=== PATIENT | female | born 1985 | race Caucasian/White ===

== ENCOUNTER 2016-12-02 12:06 | Outpatient (RCR) | payer BC ==
[~2016-12-02 12:06] MED LIST: ALBU17AE3 IH; BUPR150T14; CEFU500T34 PO; DEXA4TAB; DOCU-143 PO; FAMO20TA5 PO; FENT1PAT57 TD; HYDR-3812 PO; HYDR-3816 PO; HYDR2TAB6; IBUP-1780 PO; LEVO500T69 PO; ONDA8TAB12; OXYC5TAB71; PANT40TA2 PO; PRCD5U PO; PRD10T PO; PRD20T PO; PREN1TAB39; PROC10TA; PROM50SU10 RC; SIME125C PO
--- OUTSIDE RECORDS SUMMARY | 2016-12-02 12:11 | XMS REPORT | Continuity of Care Document ---
Author Author [facility] Organization [facility] Address Unknown Phone Unavailable Care Team Providers Care Gifted Program Teacher Name Role Phone Damari Mendoza PCP [phone] Source Comments Some departments are not documenting in the electronic medical record. If you do not see the information that you expected, contact Release of Information in the Health Information Management department at [phone] for further assistance in locating additional records.[facility] Active Allergies and Adverse Reactions Allergen Noted Date Severity Reactions Comments Clindamycin 01/18/2016 Medium HIVES Latex, Natural Rubber 01/28/2016 Low ITCHING Has not tolerated condoms in past Morphine 01/18/2016 Medium MENTAL STATUS CHANGES Anger, confusion Sulfa (Sulfonamide 01/18/2016 Medium HIVES Antibiotics) Zithromax 01/18/2016 Medium HIVES Current Medications Prescription Sig. Disp. Refills Start End Date Status Date buPROPion SR(+) Take 1 Tab by mouth 30 Tab 0 10/04/20 Active (WELLBUTRIN-SR) 150 mg daily. May take 1 tabs 16 tablet daily for 7 days. Then increase to 2 tabs daily. Indications: SMOKING CESSATION Active Problems Problem Noted Date Neutropenic fever (HCC) 04/10/2016 Diaphragm injury 02/09/2016 Lung consolidation (HCC) 02/09/2016 Overview: Left lung consolidation and mucous plugging 02/07/2016 - x-ray and CT scan chest Hypomagnesemia 02/09/2016 Overview: Replaced 02/09/2016 Ovarian cancer (HCC) 01/17/2016 Overview: Formatting of this note may be different from the original. 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 Sherrie Brar PCP: Dr. Damari Mendoza HPI: Ms Analisa Martinez is a 30 yo who presented to [facility] on 12/21/15 for severe abdominal pain of 4-5 days in duration. At time of presentation she noted recurrent loose stools and low grade fevers. A sonogram was obtained on 12/21/15 that demonstrated moderate amount of ascites in the abdomen. A CT scan was also done that demonstrated both ovaries enlarged with the left being severely enlarged measuring 7.5 cm in diameter and the right 5 cm. The left ovary also contained two large cysts of 3 and 3.5 cm consistent with ovarian endometriosis with endometriomas on both ovaries. The right ovary was moderately enlarged and contains a small cyst suggesting endometriosis in the right ovary. Mesenteric edema in the low abdomen was noted. There is a moderate amount of ascites in the abdomen and pelvis with most of the fluid being in the pelvis but a small amount of ascites around the liver and spleen. A paracentesis on 12/21/15 showed benign mesothelium with fragment of benign tubal epithelium. 2. On 01/05/16 the patient underwent a laparoscopy with left ovarian biopsy and left salpingoophorectomy, peritoneal washings. 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 Peritoneal fluid (pelvic washings) showed cellular evidence of metastatic adenocarcinoma most consistent with a gynecologic primary. CA 125 on 01/05/16 was 353.5. On 01/07/16 she presented to the [facility] ED for postoperative pain, nausea and vomiting. Imaging consistent with SBO secondary to herniation of bowel through the LLQ incision site. A diagnostic laparoscopy with release of small bowel obstruction and repair of incarcerated incisional hernia was performed at that time. 3. She was seen in my office for the first time on 01/13/2016 4. S/P Ovarian tumor debulking with abdominal hysterectomy, right salpingo-oophorectomy, pelvic peritoneal stripping, diaphragmatic stripping with repair of diaphragmatic opening. Extensive bilateral pelvic and periaortic lymph node dissection with omentectomy and placement of IP port performed 02/05/[address] Rosales. 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 0/33 LN involved. Hospital stay 02/05/16-02/12/16 with complication of pulmonary atelectasis. 5. Started Chemotherapy on 03/07/16 cycle # 1 of IV/IP Taxol/CDDP. 6. Seen on 04/18/2016, prior to Cycle #3 of IV/IP Taxol/Cisplatin. Hospitalized 04/10 for neutropenic fever and sent home with oral antibiotic therapy. Due to grade 3 abdominal pain with C2, day 8 was canceled. Dose reduction also made prior to cycle 2. Decision was made to change to IV only. 7. She completed chemotherapy on 06/20/2016, as cycle #6/6. Lab Results Component Value Date CA125 9 07/08/2016 8. Her CA125 was normal as early as 03/28/2016; Her post-treatment CT Scan done on 07/08/2016 showed: IMPRESSION: Previous hysterectomy, bilateral salpingo-oophorectomy, and retroperitoneal lymph node dissection with decrease in size of postoperative fluid collections within the left retroperitoneum and along the right pelvic sidewall. No evidence of abdominopelvic metastatic disease. Stable left adrenal nodule with relative washout characteristics consistent with an adrenal adenoma. 9. She presents to the office on 09/09/2016 for 3 month cancer surveillance visit. IP port catheter removed 08/12/[address] OLMEDO. 10. 10/04/16: Presents to concerns of bloating. No evidence of reoccurrence with exam, lab, or imaging; reviewed with patient. Last Assessment & Plan: Doing well. Today is Cycle #6. PLAN: Declines lymphedema consultation. Proceed with cycle #6. RV in 4 weeks; CT in 3 - 3 1/[address] negative, plan on RVs q 3 months with CA125. First 3 month RV with Lindsey. Most Recent Encounters Date Type Specialty Providers Description 10/04/2016 Office Visit Oncology ChahalVani allen M, INSPECTION MANAGER Ovarian cancer, unspecified laterality (HCC) (Primary Dx); Discontinued smoking; Lymphedema 10/04/2016 [facility] Radiology Caprice Webb MD Encounter 10/04/2016 Screening Form 10/04/2016 Ancillary Oncology Chahal, Vani M, INSPECTION MANAGER Ovarian ca, unspecified Orders laterality (HCC) (Primary Dx) 09/22/2016 Orders Only Oncology Chahal Vani M, INSPECTION MANAGER Ovarian cancer, BRCA2 positive, unspecified laterality (HCC) (Primary Dx) 09/22/2016 Orders Only Oncology Chahal, Vani M, INSPECTION MANAGER Ovarian ca, unspecified laterality (HCC) (Primary Dx) Social History Tobacco Use Types Packs/Day Years Used Date Current Every Day Smoker Cigarettes 0.5 14 Smokeless Tobacco: Never Used Comments: down to 2 cigs/day Alcohol Use Drinks/Week oz/Week Comments No Last Filed Vital Signs Vital Sign Reading Time Taken Blood Pressure 106/76 10/04/2016 2:06 PM PLANT MACHINIST Pulse 79 10/04/2016 2:06 PM PLANT MACHINIST Temperature 36.6 C (97.8 F) 10/04/2016 2:06 PM PLANT MACHINIST Respiratory Rate 17 06/20/2016 8:58 AM CDT Height 1.778 m (5' 10") 10/04/2016 2:08 PM PLANT MACHINIST Weight 74.027 kg (163 lb 3.2 oz) 10/04/2016 2:06 PM PLANT MACHINIST Body Mass Index 23.42 10/04/2016 2:06 PM PLANT MACHINIST Oxygen Saturation 98% 10/04/2016 2:06 PM PLANT MACHINIST Plan of Care Date Type Specialty Providers Description 01/12/2017 Appointment Oncology 01/12/2017 Appointment Oncology Caprice Webb MD [address] [facility] [address] [place] [address] [phone] (Fax) Health Maintenance Due Date Last Done Comments Physical (Comprehensive) 1990 Exam Pertussis Vaccine 1994 Tetanus Vaccine 2000 Cervical Cancer Screening 2004 Influenza Vaccine 06/23/2016 Results from Last [address] CHEST W CONTRAST (10/04/2016 9:10 AM) Impressions CHEST: No evidence of thoracic metastatic disease. ABDOMEN AND PELVIS: 1. Prior hysterectomy, bilateral salpingo-oophorectomy, omentectomy and retroperitoneal lymph node dissection without evidence of abdominopelvic metastatic disease or ascites. 2. Continued decrease in size of small postoperative fluid collections in the pelvis as detailed above. By my electronic signature, I attest that I have personally reviewed the images for this examination and formulated the interpretations and opinions expressed in this report Finalized by Sagrario Parra M.D. on 10/04/2016 10:16 AM. Dictated by Randall Maldonado M.D. on 10/04/2016 9:[address] CHEST, ABDOMEN AND PELVIS Clinical Indication: 31-year-old female with ovarian cancer, evaluation of disease progression Technique: Multiple contiguous axial images were obtained through the chest, abdomen and pelvis following the administration of IV contrast material. Portal venous phase of postcontrast imaging was obtained. Post processing coronal and sagittal reconstruction images were made from the axial images. Comparison: CT examination 07/08/2016, 04/10/2016, and 02/08/2016. CHEST FINDINGS: Lower Neck: Unremarkable Axilla, Mediastinum and Tammy: Anterior mediastinal soft tissue, compatible with remnant thymus. No new or enlarging thoracic lymphadenopathy. Heart and Great Vessels: Heart size is normal without pericardial effusion. Thoracic aorta is normal in caliber. Left chest port with tip projecting in the right atrium. Airway, Lungs and Pleura: Unchanged subpleural right pulmonary nodules. No new suspicious for nodules, pleural effusion, or pneumothorax. Chest Wall and Osseous Structures: No destructive osseous lesion. ABDOMEN AND PELVIS FINDINGS: Liver and Biliary system: Unremarkable. Spleen: Unremarkable. Adrenal Glands and Kidneys: No significant change in 1.3 cm left adrenal adenoma. Kidneys and adrenal glands otherwise unremarkable. Pancreas and Retroperitoneum: Pancreas is unremarkable. Prior retroperitoneal lymph node dissection without new or enlarging adenopathy. Minimal residual postoperative fluid collection adjacent to the left iliopsoas musculature measuring 1.9 x 1.0 cm (series 2, image 119), compared with 3.3 cm on previous examination. Aorta and Major Vessels: Unremarkable. Bowel, Mesentery and Peritoneal space: Prior omentectomy.Small large bowel in caliber without evidence of obstruction.Interval removal of intraperitoneal port catheter. No significant abdominal ascites.No mesenteric adenopathy or soft tissue nodularity. Pelvis: Prior hysterectomy and bilateral salpingo-oophorectomy.No abnormal soft tissue mass in the postoperative margin.Resolution of previously described right pelvic sidewall postoperative fluid collection, with further decrease in size of small postoperative fluid collections along the left pelvic sidewall and left retroperitoneum.No new or enlarging pelvic lymphadenopathy. Abdominal wall and Osseous Structures: Mild lumbar spondylosis without destructive osseous lesion. Procedure Note Interface, Radiant Results - Tue Oct 04, 2016 10:[address] CHEST, ABDOMEN AND PELVIS Clinical Indication: 31-year-old female with ovarian cancer, evaluation of disease progression Technique: Multiple contiguous axial images were obtained through the chest, abdomen and pelvis following the administration of IV contrast material. Portal venous phase of postcontrast imaging was obtained. Post processing coronal and sagittal reconstruction images were made from the axial images. Comparison: CT examination 07/08/2016, 04/10/2016, and 02/08/2016. CHEST FINDINGS: Lower Neck: Unremarkable Axilla, Mediastinum and Tammy: Anterior mediastinal soft tissue, compatible with remnant thymus. No new or enlarging thoracic lymphadenopathy. Heart and Great Vessels: Heart size is normal without pericardial effusion. Thoracic aorta is normal in caliber. Left chest port with tip projecting in the right atrium. Airway, Lungs and Pleura: Unchanged subpleural right pulmonary nodules. No new suspicious for nodules, pleural effusion, or pneumothorax. Chest Wall and Osseous Structures: No destructive osseous lesion. ABDOMEN AND PELVIS FINDINGS: Liver and Biliary system: Unremarkable. Spleen: Unremarkable. Adrenal Glands and Kidneys: No significant change in 1.3 cm left adrenal adenoma. Kidneys and adrenal glands otherwise unremarkable. Pancreas and Retroperitoneum: Pancreas is unremarkable. Prior retroperitoneal lymph node dissection without new or enlarging adenopathy. Minimal residual postoperative fluid collection adjacent to the left iliopsoas musculature measuring 1.9 x 1.0 cm (series 2, image 119), compared with 3.3 cm on previous examination. Aorta and Major Vessels: Unremarkable. Bowel, Mesentery and Peritoneal space: Prior omentectomy. Small large bowel in caliber without evidence of obstruction. Interval removal of intraperitoneal port catheter. No significant abdominal ascites. No mesenteric adenopathy or soft tissue nodularity. Pelvis: Prior hysterectomy and bilateral salpingo-oophorectomy. No abnormal soft tissue mass in the postoperative margin. Resolution of previously described right pelvic sidewall postoperative fluid collection, with further decrease in size of small postoperative fluid collections along the left pelvic sidewall and left retroperitoneum. No new or enlarging pelvic lymphadenopathy. Abdominal wall and Osseous Structures: Mild lumbar spondylosis without destructive osseous lesion. IMPRESSION CHEST: No evidence of thoracic metastatic disease. ABDOMEN AND PELVIS: 1. Prior hysterectomy, bilateral salpingo-oophorectomy, omentectomy and retroperitoneal lymph node dissection without evidence of abdominopelvic metastatic disease or ascites. 2. Continued decrease in size of small postoperative fluid collections in the pelvis as detailed above. By my electronic signature, I attest that I have personally reviewed the images for this examination and formulated the interpretations and opinions expressed in this report Finalized by Sagrario Parra M.D. on 10/04/2016 10:16 AM. Dictated by Randall Maldonado M.D. on 10/04/2016 9:[address] ABD/PELV W CONTRAST (10/04/2016 9:10 AM) Impressions CHEST: No evidence of thoracic metastatic disease. ABDOMEN AND PELVIS: 1. Prior hysterectomy, bilateral salpingo-oophorectomy, omentectomy and retroperitoneal lymph node dissection without evidence of abdominopelvic metastatic disease or ascites. 2. Continued decrease in size of small postoperative fluid collections in the pelvis as detailed above. By my electronic signature, I attest that I have personally reviewed the images for this examination and formulated the interpretations and opinions expressed in this report Finalized by Sagrario Parra M.D. on 10/04/2016 10:16 AM. Dictated by Randall Maldonado M.D. on 10/04/2016 9:[address] CHEST, ABDOMEN AND PELVIS Clinical Indication: 31-year-old female with ovarian cancer, evaluation of disease progression Technique: Multiple contiguous axial images were obtained through the chest, abdomen and pelvis following the administration of IV contrast material. Portal venous phase of postcontrast imaging was obtained. Post processing coronal and sagittal reconstruction images were made from the axial images. Comparison: CT examination 07/08/2016, 04/10/2016, and 02/08/2016. CHEST FINDINGS: Lower Neck: Unremarkable Axilla, Mediastinum and Tammy: Anterior mediastinal soft tissue, compatible with remnant thymus. No new or enlarging thoracic lymphadenopathy. Heart and Great Vessels: Heart size is normal without pericardial effusion. Thoracic aorta is normal in caliber. Left chest port with tip projecting in the right atrium. Airway, Lungs and Pleura: Unchanged subpleural right pulmonary nodules. No new suspicious for nodules, pleural effusion, or pneumothorax. Chest Wall and Osseous Structures: No destructive osseous lesion. ABDOMEN AND PELVIS FINDINGS: Liver and Biliary system: Unremarkable. Spleen: Unremarkable. Adrenal Glands and Kidneys: No significant change in 1.3 cm left adrenal adenoma. Kidneys and adrenal glands otherwise unremarkable. Pancreas and Retroperitoneum: Pancreas is unremarkable. Prior retroperitoneal lymph node dissection without new or enlarging adenopathy. Minimal residual postoperative fluid collection adjacent to the left iliopsoas musculature measuring 1.9 x 1.0 cm (series 2, image 119), compared with 3.3 cm on previous examination. Aorta and Major Vessels: Unremarkable. Bowel, Mesentery and Peritoneal space: Prior omentectomy.Small large bowel in caliber without evidence of obstruction.Interval removal of intraperitoneal port catheter. No significant abdominal ascites.No mesenteric adenopathy or soft tissue nodularity. Pelvis: Prior hysterectomy and bilateral salpingo-oophorectomy.No abnormal soft tissue mass in the postoperative margin.Resolution of previously described right pelvic sidewall postoperative fluid collection, with further decrease in size of small postoperative fluid collections along the left pelvic sidewall and left retroperitoneum.No new or enlarging pelvic lymphadenopathy. Abdominal wall and Osseous Structures: Mild lumbar spondylosis without destructive osseous lesion. Procedure Note Interface, Radiant Results - Tue Oct 04, 2016 10:[address] CHEST, ABDOMEN AND PELVIS Clinical Indication: 31-year-old female with ovarian cancer, evaluation of disease progression Technique: Multiple contiguous axial images were obtained through the chest, abdomen and pelvis following the administration of IV contrast material. Portal venous phase of postcontrast imaging was obtained. Post processing coronal and sagittal reconstruction images were made from the axial images. Comparison: CT examination 07/08/2016, 04/10/2016, and 02/08/2016. CHEST FINDINGS: Lower Neck: Unremarkable Axilla, Mediastinum and Tammy: Anterior mediastinal soft tissue, compatible with remnant thymus. No new or enlarging thoracic lymphadenopathy. Heart and Great Vessels: Heart size is normal without pericardial effusion. Thoracic aorta is normal in caliber. Left chest port with tip projecting in the right atrium. Airway, Lungs and Pleura: Unchanged subpleural right pulmonary nodules. No new suspicious for nodules, pleural effusion, or pneumothorax. Chest Wall and Osseous Structures: No destructive osseous lesion. ABDOMEN AND PELVIS FINDINGS: Liver and Biliary system: Unremarkable. Spleen: Unremarkable. Adrenal Glands and Kidneys: No significant change in 1.3 cm left adrenal adenoma. Kidneys and adrenal glands otherwise unremarkable. Pancreas and Retroperitoneum: Pancreas is unremarkable. Prior retroperitoneal lymph node dissection without new or enlarging adenopathy. Minimal residual postoperative fluid collection adjacent to the left iliopsoas musculature measuring 1.9 x 1.0 cm (series 2, image 119), compared with 3.3 cm on previous examination. Aorta and Major Vessels: Unremarkable. Bowel, Mesentery and Peritoneal space: Prior omentectomy. Small large bowel in caliber without evidence of obstruction. Interval removal of intraperitoneal port catheter. No significant abdominal ascites. No mesenteric adenopathy or soft tissue nodularity. Pelvis: Prior hysterectomy and bilateral salpingo-oophorectomy. No abnormal soft tissue mass in the postoperative margin. Resolution of previously described right pelvic sidewall postoperative fluid collection, with further decrease in size of small postoperative fluid collections along the left pelvic sidewall and left retroperitoneum. No new or enlarging pelvic lymphadenopathy. Abdominal wall and Osseous Structures: Mild lumbar spondylosis without destructive osseous lesion. IMPRESSION CHEST: No evidence of thoracic metastatic disease. ABDOMEN AND PELVIS: 1. Prior hysterectomy, bilateral salpingo-oophorectomy, omentectomy and retroperitoneal lymph node dissection without evidence of abdominopelvic metastatic disease or ascites. 2. Continued decrease in size of small postoperative fluid collections in the pelvis as detailed above. By my electronic signature, I attest that I have personally reviewed the images for this examination and formulated the interpretations and opinions expressed in this report Finalized by Sagrario Parra M.D. on 10/04/2016 10:16 AM. Dictated by Randall Maldonado M.D. on 10/04/2016 9:21 AM. COMPREHENSIVE METABOLIC PANEL (10/04/2016 7:54 AM) Component Value Range Sodium 140 137-147 MMOL/L Potassium 3.9 3.5-5.1 MMOL/L Chloride 105 98-110 MMOL/L Glucose 93 70-100 MG/DL Blood Urea Nitrogen 12 7-25 MG/DL Creatinine 0.77 0.4-1.00 MG/DL Calcium 10.1 8.5-10.6 MG/DL Total Protein 7.4 6.0-8.0 G/DL Total Bilirubin 0.6 0.3-1.2 MG/DL Albumin 4.6 3.5-5.0 G/DL Alk Phosphatase 55 25-110 U/L AST (SGOT) 13 7-40 U/L CO2 30 21-30 MMOL/L ALT (SGPT) 9 7-56 U/L Anion Gap 5 3-12 eGFR Non >60Comment: >60 mL/min The eGFR is not validated for use in drug dosing adjustments. Continue to use estimated creatinine clearance per dosing reference text. Please contact the Clinical Pharmacist for questions. eGFR >60Comment: >60 mL/min The eGFR is not validated for use in drug dosing adjustments. Continue to use estimated creatinine clearance per dosing reference text. Please contact the Clinical Pharmacist for questions. Specimen Blood CBC AND DIFF (10/04/2016 7:54 AM) Component Value Range White Blood Cells 4.1 (L) 4.5-11.0 K/UL RBC 4.39 4.0-5.0 M/UL Hemoglobin 13.8 12.0-15.0 GM/DL Hematocrit 40.1 36-45 % MCV 91.5 80-100 FL MCH 31.5 26-34 PG MCHC 34.5 32.0-36.0 G/DL RDW 12.3 11-15 % Platelet Count 181 150-400 K/UL MPV 8.2 7-11 FL Neutrophils 59 41-77 % Lymphocytes 24 24-44 % Monocytes 11 4-12 % Eosinophils 5 0-5 % Basophils 1 0-2 % Absolute Neutrophil Count 2.40 1.8-7.0 K/UL Absolute Lymph Count 1.00 1.0-4.8 K/UL Absolute Monocyte Count 0.40 0-0.80 K/UL Absolute Eosinophil Count 0.20 0-0.45 K/UL Absolute Basophil Count 0.00 0-0.20 K/UL Specimen Blood CA125 (10/04/2016 7:54 AM) Component Value Range CA-125 8 <35 U/ml Specimen Blood
== END 2017-03-02 | disposition home or self-care (01) ==
LOC: ONC 12:06
PROVIDERS: ATTEND Internal Medicine Hematology & Oncology
DX: C78.6 Secondary malignant neoplasm of retroperitoneum and peritoneum (principal); Z85.43 Personal history of malignant neoplasm of ovary; F17.210 Nicotine dependence, cigarettes, uncomplicated; Z45.2 Encounter for adjustment and management of vascular access device
CPT/HCPCS: 96523

== ENCOUNTER 2017-03-16 09:46 | Outpatient (RCR) | payer BC ==
[~2017-03-16 09:46] MED LIST changes: +OXYC-529; -OXYC5TAB71
== END 2017-06-14 | disposition home or self-care (01) ==
LOC: ONC 09:46
PROVIDERS: ATTEND Internal Medicine Hematology & Oncology
DX: C78.6 Secondary malignant neoplasm of retroperitoneum and peritoneum (principal); Z85.43 Personal history of malignant neoplasm of ovary; F17.210 Nicotine dependence, cigarettes, uncomplicated; Z45.2 Encounter for adjustment and management of vascular access device
CPT/HCPCS: 96523

== ENCOUNTER 2017-06-22 09:09 | Outpatient (RCR) | payer BC ==
[~2017-06-22 09:09] MED LIST changes: -OXYC-529; +OXYC5TAB71
[2017-06-22 09:28] LABS: BASOPHILS % (AUTO) 0 % (0-10); EOSINOPHILS # (AUTO) 0.1 10^3/uL (0.0-0.3); EOSINOPHILS % (AUTO) 3 % (0-10); LYMPHOCYTES # (AUTO) 0.9 X 10^3 (1.0-4.0); LYMPHOCYTES % (AUTO) 26 % (12-44); MEAN CORPUSCULAR HEMOGLOBIN 31 PG (25-34); MEAN CORPUSCULAR HGB CONC 35 G/DL (32-36); MEAN CORPUSCULAR VOLUME 90 FL (80-99); MEAN PLATELET VOLUME 9.6 FL (7.4-10.4); MONOCYTES # (AUTO) 0.2 X 10^3 (0.0-1.0); MONOCYTES % (AUTO) 5 % (0-12); NEUTROPHILS # (AUTO) 2.3 X 10^3 (1.8-7.8); NEUTROPHILS % (AUTO) 67 % (42-75); PLATELET COUNT 185 10^3/uL (130-400); RED BLOOD COUNT 3.67 10^6/uL (4.35-5.85); RED CELL DISTRIBUTION WIDTH 12.8 % (10.0-14.5); WHITE BLOOD COUNT 3.4 10^3/uL (4.3-11.0)
[2017-06-22 09:48] LABS: ALANINE AMINOTRANSFERASE 17 U/L (0-55); ALBUMIN 4.4 GM/DL (3.2-4.5); ANION GAP 8 MMOL/L (5-14); ASPARTATE AMINO TRANSFERASE 15 U/L (5-34); BILIRUBIN,TOTAL 0.8 MG/DL (0.1-1.0); BLOOD UREA NITROGEN 12 MG/DL (7-18); BUN/CREATININE RATIO 15; CALCIUM 9.6 MG/DL (8.5-10.1); CARBON DIOXIDE 28 MMOL/L (21-32); CHLORIDE 103 MMOL/L (98-107); GFR ESTIMATED > 60; GLUCOSE 99 MG/DL (70-105); MAGNESIUM 1.2 MG/DL (1.8-2.4); POTASSIUM 3.9 MMOL/L (3.6-5.0); SODIUM 139 MMOL/L (135-145)
== END 2017-07-22 | disposition home or self-care (01) ==
LOC: ONC 09:09
PROVIDERS: ATTEND Nurse Practitioner Adult Health
DX: F17.210 Nicotine dependence, cigarettes, uncomplicated; Z85.43 Personal history of malignant neoplasm of ovary; C78.6 Secondary malignant neoplasm of retroperitoneum and peritoneum
CPT/HCPCS: 36415; 80053; 83735; 85025; 99213

== ENCOUNTER 2017-07-21 11:23 | Outpatient (RCR) | payer BC ==
[2017-07-04 11:48] LABS: BASOPHILS % (AUTO) 0 % (0-10); EOSINOPHILS % (AUTO) 1 % (0-10); LYMPHOCYTES # (AUTO) 1.1 X 10^3 (1.0-4.0); LYMPHOCYTES % (AUTO) 31 % (12-44); MEAN CORPUSCULAR HEMOGLOBIN 31 PG (25-34); MEAN CORPUSCULAR HGB CONC 34 G/DL (32-36); MEAN CORPUSCULAR VOLUME 91 FL (80-99); MEAN PLATELET VOLUME 8.8 FL (7.4-10.4); MONOCYTES # (AUTO) 0.4 X 10^3 (0.0-1.0); MONOCYTES % (AUTO) 12 % (0-12); NEUTROPHILS % (AUTO) 55 % (42-75); PLATELET COUNT 139 10^3/uL (130-400); RED BLOOD COUNT 3.47 10^6/uL (4.35-5.85); RED CELL DISTRIBUTION WIDTH 14.8 % (10.0-14.5); WHITE BLOOD COUNT 3.6 10^3/uL (4.3-11.0)
[2017-07-04 12:21] LABS: ALANINE AMINOTRANSFERASE 15 U/L (0-55); ALBUMIN 4.4 GM/DL (3.2-4.5); ANION GAP 10 MMOL/L (5-14); ASPARTATE AMINO TRANSFERASE 16 U/L (5-34); BILIRUBIN,TOTAL 0.4 MG/DL (0.1-1.0); BLOOD UREA NITROGEN 13 MG/DL (7-18); BUN/CREATININE RATIO 16; CALCIUM 9.7 MG/DL (8.5-10.1); CARBON DIOXIDE 27 MMOL/L (21-32); CHLORIDE 102 MMOL/L (98-107); CREATININE SERUM 0.81 MG/DL (0.60-1.30); GFR ESTIMATED > 60; GLUCOSE 95 MG/DL (70-105); MAGNESIUM 1.4 MG/DL (1.8-2.4); POTASSIUM 3.9 MMOL/L (3.6-5.0); SODIUM 139 MMOL/L (135-145); TOTAL PROTEIN 7.5 GM/DL (6.4-8.2)
[2017-07-21 11:36] LABS: BASOPHILS % (AUTO) 1 % (0-10); EOSINOPHILS % (AUTO) 1 % (0-10); LYMPHOCYTES # (AUTO) 1.1 X 10^3 (1.0-4.0); LYMPHOCYTES % (AUTO) 29 % (12-44); MEAN CORPUSCULAR HEMOGLOBIN 32 PG (25-34); MEAN CORPUSCULAR HGB CONC 35 G/DL (32-36); MEAN CORPUSCULAR VOLUME 91 FL (80-99); MEAN PLATELET VOLUME 9.3 FL (7.4-10.4); MONOCYTES # (AUTO) 0.4 X 10^3 (0.0-1.0); MONOCYTES % (AUTO) 10 % (0-12); NEUTROPHILS # (AUTO) 2.2 X 10^3 (1.8-7.8); NEUTROPHILS % (AUTO) 59 % (42-75); PLATELET COUNT 301 10^3/uL (130-400); RED BLOOD COUNT 3.55 10^6/uL (4.35-5.85); RED CELL DISTRIBUTION WIDTH 14.8 % (10.0-14.5); WHITE BLOOD COUNT 3.7 10^3/uL (4.3-11.0)
[2017-07-21 11:58] LABS: ALANINE AMINOTRANSFERASE 14 U/L (0-55); ALBUMIN 4.5 GM/DL (3.2-4.5); ANION GAP 9 MMOL/L (5-14); ASPARTATE AMINO TRANSFERASE 19 U/L (5-34); BILIRUBIN,TOTAL 0.6 MG/DL (0.1-1.0); BLOOD UREA NITROGEN 11 MG/DL (7-18); BUN/CREATININE RATIO 14; CALCIUM 10.5 MG/DL (8.5-10.1); CARBON DIOXIDE 28 MMOL/L (21-32); CHLORIDE 104 MMOL/L (98-107); CREATININE SERUM 0.79 MG/DL (0.60-1.30); GFR ESTIMATED > 60; GLUCOSE 96 MG/DL (70-105); MAGNESIUM 1.3 MG/DL (1.8-2.4); POTASSIUM 3.8 MMOL/L (3.6-5.0); SODIUM 141 MMOL/L (135-145); TOTAL PROTEIN 7.4 GM/DL (6.4-8.2)
== END 2017-07-22 | disposition home or self-care (01) ==
LOC: LAB 11:23
PROVIDERS: ATTEND Physician Assistant Medical
DX: C56.2 Malignant neoplasm of left ovary (principal)
CPT/HCPCS: 36415; 80053; 83735; 85025

== ENCOUNTER 2017-08-03 11:29 | Outpatient (RCR) | payer BC ==
[~2017-08-03 11:29] MED LIST changes: +ACHD5005 PO; -HYDR-3812 PO; +OXYC-529; -OXYC5TAB71
[2017-08-03 11:54] LABS: BASOPHILS % (AUTO) 0 % (0-10); EOSINOPHILS # (AUTO) 0.1 10^3/uL (0.0-0.3); EOSINOPHILS % (AUTO) 2 % (0-10); HEMATOCRIT 31 % (35-52); HEMOGLOBIN 10.9 G/DL (11.5-16.0); LYMPHOCYTES % (AUTO) 27 % (12-44); MEAN CORPUSCULAR HEMOGLOBIN 32 PG (25-34); MEAN CORPUSCULAR HGB CONC 35 G/DL (32-36); MEAN CORPUSCULAR VOLUME 93 FL (80-99); MEAN PLATELET VOLUME 9.9 FL (7.4-10.4); MONOCYTES # (AUTO) 0.5 X 10^3 (0.0-1.0); MONOCYTES % (AUTO) 12 % (0-12); NEUTROPHILS # (AUTO) 2.2 X 10^3 (1.8-7.8); NEUTROPHILS % (AUTO) 59 % (42-75); PLATELET COUNT 109 10^3/uL (130-400); RED BLOOD COUNT 3.38 10^6/uL (4.35-5.85); RED CELL DISTRIBUTION WIDTH 16.2 % (10.0-14.5); WHITE BLOOD COUNT 3.8 10^3/uL (4.3-11.0)
[2017-08-03 12:11] LABS: ALANINE AMINOTRANSFERASE 10 U/L (0-55); ALBUMIN 4.4 GM/DL (3.2-4.5); ALKALINE PHOSPHATASE 63 U/L (40-136); BILIRUBIN,TOTAL 0.3 MG/DL (0.1-1.0); BUN/CREATININE RATIO 20; CALCIUM 9.6 MG/DL (8.5-10.1); CARBON DIOXIDE 26 MMOL/L (21-32); CHLORIDE 106 MMOL/L (98-107); CREATININE SERUM 0.83 MG/DL (0.60-1.30); GFR ESTIMATED > 60; GLUCOSE 105 MG/DL (70-105); MAGNESIUM 1.5 MG/DL (1.8-2.4); POTASSIUM 3.9 MMOL/L (3.6-5.0); SODIUM 140 MMOL/L (135-145); TOTAL PROTEIN 7.3 GM/DL (6.4-8.2)
== END 2017-11-01 | disposition home or self-care (01) ==
LOC: LAB 11:29
PROVIDERS: ATTEND Physician Assistant Medical
DX: C56.2 Malignant neoplasm of left ovary (principal)
CPT/HCPCS: 36415; 80053; 83735; 85025

== ENCOUNTER → 2017-10-12 | Outpatient (CLI) | payer BC ==
[~2017-10-12] MED LIST changes: -ACHD5005 PO; +HYDR-3812 PO
[2017-10-12 13:00] LABS: BASOPHILS % (AUTO) 1 % (0-10); EOSINOPHILS # (AUTO) 0.1 10^3/uL (0.0-0.3); EOSINOPHILS % (AUTO) 2 % (0-10); LYMPHOCYTES % (AUTO) 31 % (12-44); MEAN CORPUSCULAR HEMOGLOBIN 35 PG (25-34); MEAN CORPUSCULAR HGB CONC 35 G/DL (32-36); MEAN CORPUSCULAR VOLUME 100 FL (80-99); MEAN PLATELET VOLUME 9.3 FL (7.4-10.4); MONOCYTES # (AUTO) 0.3 X 10^3 (0.0-1.0); MONOCYTES % (AUTO) 8 % (0-12); NEUTROPHILS # (AUTO) 1.9 X 10^3 (1.8-7.8); NEUTROPHILS % (AUTO) 59 % (42-75); PLATELET COUNT 316 10^3/uL (130-400); RED BLOOD COUNT 2.95 10^6/uL (4.35-5.85); RED CELL DISTRIBUTION WIDTH 13.7 % (10.0-14.5); WHITE BLOOD COUNT 3.2 10^3/uL (4.3-11.0)
[2017-10-12 13:38] LABS: ALANINE AMINOTRANSFERASE 13 U/L (0-55); ANION GAP 9 MMOL/L (5-14); ASPARTATE AMINO TRANSFERASE 19 U/L (5-34); BILIRUBIN,TOTAL 0.7 MG/DL (0.1-1.0); BLOOD UREA NITROGEN 12 MG/DL (7-18); BUN/CREATININE RATIO 18; CALCIUM 8.9 MG/DL (8.5-10.1); CARBON DIOXIDE 26 MMOL/L (21-32); CHLORIDE 106 MMOL/L (98-107); CREATININE SERUM 0.68 MG/DL (0.60-1.30); GFR ESTIMATED > 60; GLUCOSE 98 MG/DL (70-105); SODIUM 141 MMOL/L (135-145); TOTAL PROTEIN 6.6 GM/DL (6.4-8.2)
== END ==
LOC: LAB 12:09
PROVIDERS: ATTEND Obstetrics & Gynecology Gynecologic Oncology
DX: C56.2 Malignant neoplasm of left ovary (principal)
CPT/HCPCS: 36415; 36591; 80053; 85025

== ENCOUNTER → 2017-10-19 | Outpatient (CLI) | payer BC ==
[~2017-10-19] MED LIST changes: +ACHD5005 PO; -HYDR-3812 PO
[2017-10-19 13:48] LABS: BASOPHILS % (AUTO) 0 % (0-10); EOSINOPHILS % (AUTO) 1 % (0-10); HEMATOCRIT 29 % (35-52); HEMOGLOBIN 10.1 G/DL (11.5-16.0); LYMPHOCYTES # (AUTO) 0.9 X 10^3 (1.0-4.0); LYMPHOCYTES % (AUTO) 27 % (12-44); MEAN CORPUSCULAR HEMOGLOBIN 35 PG (25-34); MEAN CORPUSCULAR HGB CONC 35 G/DL (32-36); MEAN CORPUSCULAR VOLUME 101 FL (80-99); MEAN PLATELET VOLUME 9.4 FL (7.4-10.4); MONOCYTES # (AUTO) 0.4 X 10^3 (0.0-1.0); MONOCYTES % (AUTO) 11 % (0-12); NEUTROPHILS # (AUTO) 2.1 X 10^3 (1.8-7.8); NEUTROPHILS % (AUTO) 61 % (42-75); PLATELET COUNT 132 10^3/uL (130-400); RED BLOOD COUNT 2.88 10^6/uL (4.35-5.85); RED CELL DISTRIBUTION WIDTH 13.5 % (10.0-14.5); WHITE BLOOD COUNT 3.4 10^3/uL (4.3-11.0)
[2017-10-19 14:23] LABS: ALANINE AMINOTRANSFERASE 25 U/L (0-55); ALKALINE PHOSPHATASE 58 U/L (40-136); BILIRUBIN,TOTAL 0.3 MG/DL (0.1-1.0); BUN/CREATININE RATIO 17; CALCIUM 9.1 MG/DL (8.5-10.1); CARBON DIOXIDE 30 MMOL/L (21-32); CHLORIDE 106 MMOL/L (98-107); CREATININE SERUM 0.77 MG/DL (0.60-1.30); GFR ESTIMATED > 60; GLUCOSE 83 MG/DL (70-105); POTASSIUM 3.7 MMOL/L (3.6-5.0); SODIUM 143 MMOL/L (135-145); TOTAL PROTEIN 6.8 GM/DL (6.4-8.2)
== END ==
LOC: LAB 13:21
PROVIDERS: ATTEND Obstetrics & Gynecology Gynecologic Oncology
DX: C56.2 Malignant neoplasm of left ovary (principal)
CPT/HCPCS: 36415; 80053; 85025

== ENCOUNTER → 2017-12-04 | Outpatient (CLI) | payer BC ==
[~2017-12-04] MED LIST changes: +HYDR-34 PO; -HYDR-3816 PO
[2017-12-04 11:56] LABS: BASOPHILS % (AUTO) 1 % (0-10); EOSINOPHILS # (AUTO) 0.1 10^3/uL (0.0-0.3); EOSINOPHILS % (AUTO) 2 % (0-10); HEMATOCRIT 33 % (35-52); HEMOGLOBIN 11.8 G/DL (11.5-16.0); LYMPHOCYTES # (AUTO) 0.8 X 10^3 (1.0-4.0); LYMPHOCYTES % (AUTO) 29 % (12-44); MEAN CORPUSCULAR HEMOGLOBIN 37 PG (25-34); MEAN CORPUSCULAR HGB CONC 36 G/DL (32-36); MEAN CORPUSCULAR VOLUME 101 FL (80-99); MEAN PLATELET VOLUME 8.8 FL (7.4-10.4); MONOCYTES # (AUTO) 0.4 X 10^3 (0.0-1.0); MONOCYTES % (AUTO) 13 % (0-12); NEUTROPHILS # (AUTO) 1.6 X 10^3 (1.8-7.8); NEUTROPHILS % (AUTO) 56 % (42-75); PLATELET COUNT 272 10^3/uL (130-400); RED BLOOD COUNT 3.22 10^6/uL (4.35-5.85); RED CELL DISTRIBUTION WIDTH 12.9 % (10.0-14.5); WHITE BLOOD COUNT 2.8 10^3/uL (4.3-11.0)
[2017-12-04 12:14] LABS: ALANINE AMINOTRANSFERASE 13 U/L (0-55); ALBUMIN 4.5 GM/DL (3.2-4.5); ALKALINE PHOSPHATASE 70 U/L (40-136); BILIRUBIN,TOTAL 0.5 MG/DL (0.1-1.0); BUN/CREATININE RATIO 10; CALCIUM 10.2 MG/DL (8.5-10.1); CARBON DIOXIDE 29 MMOL/L (21-32); CHLORIDE 103 MMOL/L (98-107); CREATININE SERUM 0.98 MG/DL (0.60-1.30); GFR ESTIMATED > 60; GLUCOSE 89 MG/DL (70-105); POTASSIUM 3.7 MMOL/L (3.6-5.0); SODIUM 139 MMOL/L (135-145); TOTAL PROTEIN 7.2 GM/DL (6.4-8.2)
== END ==
LOC: LAB 11:32
PROVIDERS: ATTEND Obstetrics & Gynecology Gynecologic Oncology
DX: C56.2 Malignant neoplasm of left ovary (principal)
CPT/HCPCS: 36415; 80053; 85025

== ENCOUNTER 2017-12-22 14:50 | Outpatient (RCR) | payer BC ==
[2017-11-09 15:04] LABS: BASOPHILS % (AUTO) 0 % (0-10); EOSINOPHILS # (AUTO) 0.1 10^3/uL (0.0-0.3); EOSINOPHILS % (AUTO) 2 % (0-10); HEMATOCRIT 29 % (35-52); HEMOGLOBIN 10.4 G/DL (11.5-16.0); LYMPHOCYTES % (AUTO) 28 % (12-44); MEAN CORPUSCULAR HEMOGLOBIN 37 PG (25-34); MEAN CORPUSCULAR HGB CONC 36 G/DL (32-36); MEAN CORPUSCULAR VOLUME 101 FL (80-99); MEAN PLATELET VOLUME 9.3 FL (7.4-10.4); MONOCYTES # (AUTO) 0.3 X 10^3 (0.0-1.0); MONOCYTES % (AUTO) 9 % (0-12); NEUTROPHILS # (AUTO) 2.1 X 10^3 (1.8-7.8); NEUTROPHILS % (AUTO) 60 % (42-75); PLATELET COUNT 286 10^3/uL (130-400); RED BLOOD COUNT 2.83 10^6/uL (4.35-5.85); WHITE BLOOD COUNT 3.4 10^3/uL (4.3-11.0)
[2017-11-09 15:26] LABS: ALANINE AMINOTRANSFERASE 24 U/L (0-55); ALKALINE PHOSPHATASE 58 U/L (40-136); BILIRUBIN,TOTAL 0.4 MG/DL (0.1-1.0); BUN/CREATININE RATIO 20; CARBON DIOXIDE 25 MMOL/L (21-32); CHLORIDE 106 MMOL/L (98-107); GFR ESTIMATED > 60; GLUCOSE 117 MG/DL (70-105); POTASSIUM 4.1 MMOL/L (3.6-5.0); SODIUM 140 MMOL/L (135-145); TOTAL PROTEIN 6.7 GM/DL (6.4-8.2)
[2017-12-15 15:59] LABS: BASOPHILS % (AUTO) 1 % (0-10); EOSINOPHILS # (AUTO) 0.1 10^3/uL (0.0-0.3); EOSINOPHILS % (AUTO) 2 % (0-10); HEMATOCRIT 33 % (35-52); HEMOGLOBIN 12.2 G/DL (11.5-16.0); LYMPHOCYTES % (AUTO) 32 % (12-44); MEAN CORPUSCULAR HEMOGLOBIN 37 PG (25-34); MEAN CORPUSCULAR HGB CONC 37 G/DL (32-36); MEAN CORPUSCULAR VOLUME 100 FL (80-99); MONOCYTES # (AUTO) 0.3 X 10^3 (0.0-1.0); MONOCYTES % (AUTO) 8 % (0-12); NEUTROPHILS # (AUTO) 1.8 X 10^3 (1.8-7.8); NEUTROPHILS % (AUTO) 56 % (42-75); PLATELET COUNT 109 10^3/uL (130-400); RED BLOOD COUNT 3.33 10^6/uL (4.35-5.85); RED CELL DISTRIBUTION WIDTH 12.4 % (10.0-14.5); WHITE BLOOD COUNT 3.2 10^3/uL (4.3-11.0)
[2017-12-15 16:31] LABS: ALANINE AMINOTRANSFERASE 20 U/L (0-55); ALBUMIN 4.8 GM/DL (3.2-4.5); ALKALINE PHOSPHATASE 93 U/L (40-136); BILIRUBIN,TOTAL 0.5 MG/DL (0.1-1.0); BUN/CREATININE RATIO 15; CALCIUM 9.8 MG/DL (8.5-10.1); CARBON DIOXIDE 29 MMOL/L (21-32); CHLORIDE 104 MMOL/L (98-107); CREATININE SERUM 0.98 MG/DL (0.60-1.30); GFR ESTIMATED > 60; GLUCOSE 103 MG/DL (70-105); SODIUM 141 MMOL/L (135-145); TOTAL PROTEIN 7.8 GM/DL (6.4-8.2)
[~2017-12-22 14:50] MED LIST changes: +NS IV 1000 ML (CANCER CTR) 1,000 ML ONE
[2017-12-22 15:01] LABS: BASOPHILS # (AUTO) 0.1 10^3/uL (0.0-0.1); BASOPHILS % (AUTO) 2 % (0-10); EOSINOPHILS # (AUTO) 0.1 10^3/uL (0.0-0.3); EOSINOPHILS % (AUTO) 4 % (0-10); HEMATOCRIT 32 % (35-52); HEMOGLOBIN 11.6 G/DL (11.5-16.0); LYMPHOCYTES # (AUTO) 0.9 X 10^3 (1.0-4.0); LYMPHOCYTES % (AUTO) 30 % (12-44); MEAN CORPUSCULAR HEMOGLOBIN 37 PG (25-34); MEAN CORPUSCULAR HGB CONC 36 G/DL (32-36); MEAN CORPUSCULAR VOLUME 100 FL (80-99); MEAN PLATELET VOLUME 10.2 FL (7.4-10.4); MONOCYTES # (AUTO) 0.3 X 10^3 (0.0-1.0); MONOCYTES % (AUTO) 10 % (0-12); NEUTROPHILS # (AUTO) 1.7 X 10^3 (1.8-7.8); NEUTROPHILS % (AUTO) 55 % (42-75); PLATELET COUNT 60 10^3/uL (130-400); RED BLOOD COUNT 3.18 10^6/uL (4.35-5.85); RED CELL DISTRIBUTION WIDTH 12.5 % (10.0-14.5); WHITE BLOOD COUNT 3.2 10^3/uL (4.3-11.0)
[2017-12-22 15:21] LABS: ALBUMIN 4.9 GM/DL (3.2-4.5); BILIRUBIN,TOTAL 0.5 MG/DL (0.1-1.0); CALCIUM 9.7 MG/DL (8.5-10.1); CREATININE SERUM 1.1 MG/DL (0.60-1.30); POTASSIUM 3.6 MMOL/L (3.6-5.0); TOTAL PROTEIN 7.9 GM/DL (6.4-8.2)
== END 2018-01-07 | disposition home or self-care (01) ==
LOC: ONC 14:50
PROVIDERS: ATTEND Internal Medicine Hematology & Oncology
DX: C78.6 Secondary malignant neoplasm of retroperitoneum and peritoneum (principal); E86.0 Dehydration; Z85.43 Personal history of malignant neoplasm of ovary; F17.210 Nicotine dependence, cigarettes, uncomplicated
CPT/HCPCS: 36415; 36591; 80053; 85025; 96360; 96361

== ENCOUNTER → 2017-12-28 | Outpatient (CLI) | payer BC ==
[~2017-12-28] MED LIST changes: -NS IV 1000 ML (CANCER CTR) 1,000 ML ONE
[2017-12-28 12:28] LABS: BASOPHILS # (AUTO) 0.1 10^3/uL (0.0-0.1); BASOPHILS % (AUTO) 2 % (0-10); EOSINOPHILS # (AUTO) 0.1 10^3/uL (0.0-0.3); EOSINOPHILS % (AUTO) 5 % (0-10); HEMATOCRIT 27 % (35-52); LYMPHOCYTES % (AUTO) 36 % (12-44); MEAN CORPUSCULAR HEMOGLOBIN 37 PG (25-34); MEAN CORPUSCULAR HGB CONC 37 G/DL (32-36); MEAN CORPUSCULAR VOLUME 100 FL (80-99); MEAN PLATELET VOLUME 11.1 FL (7.4-10.4); MONOCYTES # (AUTO) 0.2 X 10^3 (0.0-1.0); MONOCYTES % (AUTO) 8 % (0-12); NEUTROPHILS # (AUTO) 1.4 X 10^3 (1.8-7.8); NEUTROPHILS % (AUTO) 50 % (42-75); RED BLOOD COUNT 2.74 10^6/uL (4.35-5.85); WHITE BLOOD COUNT 2.8 10^3/uL (4.3-11.0)
[2017-12-28 12:33] LABS: PLATELET COUNT 34 10^3/uL (130-400)
== END ==
LOC: LAB 12:14
PROVIDERS: ATTEND Obstetrics & Gynecology Gynecologic Oncology
DX: C56.2 Malignant neoplasm of left ovary (principal)
CPT/HCPCS: 36415; 85025

== ENCOUNTER 2018-02-28 16:05 | Outpatient (RCR) | payer BC ==
[~2018-02-28 16:05] MED LIST changes: -PROC10TA; +PROC10TA10
[2018-02-28 16:34] LABS: BASOPHILS # (AUTO) 0.1 10^3/uL (0.0-0.1); BASOPHILS % (AUTO) 1 % (0-10); EOSINOPHILS # (AUTO) 0.2 10^3/uL (0.0-0.3); EOSINOPHILS % (AUTO) 4 % (0-10); HEMATOCRIT 34 % (35-52); HEMOGLOBIN 12.1 G/DL (11.5-16.0); LYMPHOCYTES % (AUTO) 26 % (12-44); MEAN CORPUSCULAR HEMOGLOBIN 35 PG (25-34); MEAN CORPUSCULAR HGB CONC 36 G/DL (32-36); MEAN CORPUSCULAR VOLUME 98 FL (80-99); MEAN PLATELET VOLUME 9.8 FL (7.4-10.4); MONOCYTES # (AUTO) 0.5 X 10^3 (0.0-1.0); MONOCYTES % (AUTO) 12 % (0-12); NEUTROPHILS # (AUTO) 2.3 X 10^3 (1.8-7.8); NEUTROPHILS % (AUTO) 57 % (42-75); PLATELET COUNT 240 10^3/uL (130-400); RED BLOOD COUNT 3.46 10^6/uL (4.35-5.85); RED CELL DISTRIBUTION WIDTH 12.2 % (10.0-14.5); WHITE BLOOD COUNT 4.1 10^3/uL (4.3-11.0)
[2018-02-28 16:52] LABS: ALANINE AMINOTRANSFERASE 8 U/L (0-55); ALBUMIN 4.8 GM/DL (3.2-4.5); ALKALINE PHOSPHATASE 80 U/L (40-136); BILIRUBIN,TOTAL 0.5 MG/DL (0.1-1.0); BUN/CREATININE RATIO 13; CALCIUM 9.8 MG/DL (8.5-10.1); CARBON DIOXIDE 25 MMOL/L (21-32); CHLORIDE 105 MMOL/L (98-107); CREATININE SERUM 0.97 MG/DL (0.60-1.30); GFR ESTIMATED > 60; GLUCOSE 91 MG/DL (70-105); POTASSIUM 3.9 MMOL/L (3.6-5.0); SODIUM 140 MMOL/L (135-145); TOTAL PROTEIN 7.3 GM/DL (6.4-8.2)
== END 2018-05-29 | disposition home or self-care (01) ==
LOC: LAB 16:05
PROVIDERS: ATTEND Obstetrics & Gynecology Gynecologic Oncology
DX: C56.2 Malignant neoplasm of left ovary (principal)
CPT/HCPCS: 36415; 80053; 85025